=== PATIENT | male | born 1960 | race Caucasian/White ===

== ENCOUNTER 2018-08-31 16:12 | Emergency (ER) | payer BC ==
[2018-08-31 17:44] VITALS: BP 125/72
[2018-08-31] MEDS ORDERED: NS 0.9% 1000 ML* 1,000 ML IV ONE (18:21)
--- NOTE | 2018-08-31 18:38 | UC ---
UC General HPI - HPI Summary HPI Summary: Patient complaining of diarrhea, chills sweats fever, and general malaise for the past week. He denies any Cold symptoms,abdominal pain, urinary difficulty or burning. NO SOB. - History of Current Complaint Chief Complaint: UCGeneralIllness Stated Complaint: CHILLS,SWEATS,DIARRHEA,HEADACHE Time Seen by Provider: 08/31/18 17:31 Hx Obtained From: Patient Onset/Duration: Sudden Onset, Lasting Days Timing: Constant Onset Severity: Moderate Pain Intensity: 10 Associated Signs & Symptoms: Positive: Cough, Diarrhea, Diaphoresis, Headache - Allergy/Home Medications Allergies/Adverse Reactions: Allergies Allergy/AdvReac Type Severity Reaction Status Date / Time No Known Allergies Allergy Verified 08/31/18 17:44 Home Medications: Home Medications Cholecalciferol (Vitamin D3) [Vitamin D3] 2,000 unit PO DAILY 08/31/18 [History Confirmed 08/31/18] Gabapentin CAP(*) [Neurontin 400 mg CAP(*)] 600 mg PO QID 08/31/18 [History Confirmed 08/31/18] Ibuprofen TAB* [Advil TAB*] 200 mg PO Q8H PRN 08/31/18 [History Confirmed ] Losartan/Hydrochlorothiazide [Losartan-Hctz 100-25 mg Tab] 1 each PO DAILY 08/31 [History Confirmed 08/31/18] PMH/Surg Hx/FS Hx/Imm Hx Previously Healthy: Yes - Surgical History Surgical History: Yes Surgery Procedure, Year, and Place: Back surgery. total right foot reconstruction. lumbar surgery x2 - Family History Known Family History: Negative: Hypertension - Social History Alcohol Use: Occasionally Substance Use Type: None Smoking Status (MU): Never Smoked Tobacco Review of Systems Constitutional: Fever, Chills, Fatigue Skin: Negative Eyes: Negative Respiratory: Cough Cardiovascular: Negative Gastrointestinal: Negative Motor: Negative Neurovascular: Negative Musculoskeletal: Myalgia Neurological: Headache Psychological: Negative Is Patient Immunocompromised?: No All Other Systems Reviewed And Are Negative: Yes Physical Exam Triage Information Reviewed: Yes Appearance: Well-Nourished, Ill-Appearing, Pain Distress Vital Signs: Initial Vital Signs Temp 100.7 F 08/31/18 17:38 Pulse 90 08/31/18 17:38 Resp 16 08/31/18 17:38 BP 125/72 08/31/18 17:38 Pulse Ox 97 08/31/18 17:38 Eye Exam: Normal ENT: Positive: Pharyngeal erythema, TMs normal Dental Exam: Normal Neck exam: Normal Neck: Positive: Supple, Nontender, No Lymphadenopathy Respiratory Exam: Normal Respiratory: Positive: Chest non-tender, Lungs clear, Normal breath sounds Cardiovascular Exam: Normal Cardiovascular: Positive: RRR, No Murmur, Pulses Normal Abdominal Exam: Normal Abdomen Description: Positive: Nontender, No Organomegaly, Soft, CVA Tenderness (R) - neg, CVA Tenderness (L) - neg Bowel Sounds: Positive: Present Musculoskeletal Exam: Normal Musculoskeletal: Positive: Strength Intact, ROM Intact, No Edema Neurological Exam: Normal Neurological: Positive: Alert, Muscle Tone Normal Psychological Exam: Normal Skin Exam: Normal Course/Dx - Course Course Of Treatment: hx obtained, exam performed ,meds reviewed, patient appears to have a viral illness, will draw a cbc to view white count, no active diarrhea, is complaining of headache and decreased oral intake. fluids ordered which patient refused, stateing he cant wait that long. Bilateral ear flush completed by nursing. UA obtained - Differential Dx - Multi-Symptom Differential Diagnoses: Sepsis, Urinary Tract Infection Provider Diagnoses: diarrhea. fever. malaise Discharge - Sign-Out/Discharge Documenting (check all that apply): Patient Departure All imaging exams completed and their final reports reviewed: No Studies - Discharge Plan Condition: Stable Disposition: HOME Patient Education Materials: Dehydration (ED), Viral Syndrome (ED) Referrals: Efraín Miles DO [Primary Care Provider] - Additional Instructions: 1. increase fluid intake 2. continue with ibuprofen 400 mg and Tylenol 500 mg every 4 hours alternating for fever 3. FOllow up if symptoms do not resolve on their own in the next 2-3 days. TYplically viral illness can run 10 -14 days. if is important to increase you fluid intake and get plenty of rest your Blood work with be available later tomorrow, we call with any positive results. - Billing Disposition and Condition Condition: STABLE Disposition: Home
[2018-09-01 10:50] LABS: Hematocrit 45 % (42-52); Hemoglobin 15.5 g/dl (14.0-18.0); Mean Corpuscular HGB Conc 34 g/dl (31-36); Mean Corpuscular Hemoglobin 32 pg (27-31); Mean Corpuscular Volume 93 fL (80-94); Mean Platelet Volume 8.1 um3 (7.4-10.4); Platelet Count 158 10^3/ul (150-450); Red Blood Count 4.84 10^6/ul (4.00-5.40); Red Cell Distribution Width 13 % (10.5-15)
[2018-09-01 11:08] LABS: ABS Basophils 0 10^3/ul (0-0.2); ABS Eosinophils 0 10^3/ul (0-0.6); ABS Lymphocytes 0.8 10^3/ul (1.0-4.8); ABS Monocytes 0.4 10^3/ul (0-0.8); ABS Neutrophils 3.8 10^3/ul (1.5-7.7)
[2018-09-01 11:15] LABS: ABS Basophils 0.1 10^3/ul (0-0.2); Monocytes % 6 % (0-7)
== END 2018-08-31 19:17 | disposition home or self-care (01) ==
LOC: UCCORT 16:12
DX: R19.7 Diarrhea, unspecified (principal); R50.9 Fever, unspecified; R53.81 Other malaise
CPT/HCPCS: 36415; 81003; 85025; 85060; 99203; G0463